=== PATIENT | female | born 1990 | race African-American/Black ===

== ENCOUNTER 2017-01-25 09:49 | Emergency (ER) | payer MEDICAID ==
[2017-01-25 10:00] VITALS: BP 137/69
--- NOTE | 2017-01-25 12:45 | DR.GENAD ---
HPI - PCP Primary Care Physician: DAVIS - HPI Comment HPI Comment: Pt c/o hurting all over for the last 2 days. she reports fever of 101 last night, but denies symptoms and chest pain. Her cough is non productive. She has taken percocet 20mg, oxycontin 60mg proro to arrival today. - Complaint/Symptoms Chief Complaint Doctors Comments: "I am having a sickle cell crisis." Chief Complaint:: PT STATES " I AM HAVING A SICKLE CELL CRISIS I AM HURTING ALL OVER AND VOMITTING ".. Self Treatment fo Chief Complaint: PHENERGAN , ZOFRAN , PERCOCET , OXYCONTIN .. - Nurses notes reviewed Nurses Notes Review: Yes - Source History Provided: Patient - Mode of Arrival Mode of Arrival: Ambulatory - Timing Onset of Chief Complaint: 01/25/17 Came on: Gradually - Duration Duration: Since Onset How lon Duration: Days - Severity Severity: Severe PMH - PMH Past Medical History: Yes Past Medical History: Anemia, Asthma, Hypertension Past Surgical History: Yes Surgical History: , Cholecystectomy - Family History History of Family Medical Conditions: Yes Family Medical History: Heart Failure, Hypertension - Social History Does patient currently use any type of tobacco product: No Have you used tobacco products in the last 12 months: No Type of Tobacco Use: None Does any household member use tobacco: No Do you use any recreational Drugs:: No Lives With: Alone Lives Where: Home - infectious screening In the last 2 months have you had wt loss of >10#?: NO Have you had fever, night sweats or hemotysis?: No Have you traveled outside the country in the last 6 months?: No Isolation: Standard ROS - Review of Systems Constitutional: Chills, Fever, Weakness, Fatigue Eyes: No Symptoms Reported ENTM: No Symptoms Reported Respiratoy: Dry Cough Cardiovascular: No Symptoms Reported Gastrointestinal/Abdominal: No Symptoms Reported Genitourinary: No Symptoms Reported Neurological: No Symptoms Reported Musculoskeletal: Back Pain Integumentary: No Symptoms Reported Hematologic/Lymphatic: No Symptoms Reported Endocrine: No Symptoms Reported Psychiatric: No Symptoms Reported All Other Systems: Reviewed and Negative PE - Vital Signs Vitals: Temperature 98.6 F Pulse Rate 102 Respiratory Rate 18 Blood Pressure 137/69 O2 Sat by Pulse Oximetry 98 - General Limitations: No Limitations General Appearance: Alert, Other (crying) - Head Head Exam: Normal Inspection, Atraumatic - Eyes Eye exam: Normal Appearance, PERRL, EOMI - ENT ENT Exam: Normal Exam, Normal Oropharynx, Mucous Membranes Moist External Ear Exam: Normal External Inspection TM/Canal Exam: Bilateral Normal Nose Exam: Normal Nose Exam Mouth Exam: Normal Inspection Throat Exam: Normal Inspection - Neck Neck Exam: Normal Inspection - Chest Chest Inspection: Normal Inspection - Respiratory Respiratory Exam: Normal Lung Sounds Bilat Respiratory Exam: Bilateral Clear to Auscultation - Cardiovascular Cardiovascular Exam: Regular Rate, Normal Rhythm, Normal Heart Sounds - Abdominal Exam Abdominal Exam: Normal Inspection, Soft - Extremities Extremities Exam: Normal Inspection, Full ROM - Back Back Exam: Normal Inspection - Neurologic Neurological Exam: Alert, Oriented X3, CN II-XII Intact - Psychiatric Psychiatric Exam: Normal Affect, Normal Mood, Agitated - Skin Skin Exam: Warm, Dry, Intact, Normal Color MDM - Differential Diagnosis Differential Diagnosis: sickle cell crisis, drug seeking behavior ROR - Labs Reviewed Result Diagrams: 01/25/17 13:10 01/25/17 13:10 Laboratory: WBC 16.0 X10^3/uL (3.6-10.0) H 01/25/17 13:10 RBC 2.50 X10^6/uL (3.5-5.4) L 01/25/17 13:10 Hgb 7.9 g/dL (12.0-16.0) L 01/25/17 13:10 Hct 24.0 % (36.0-47.0) L 01/25/17 13:10 MCV 96.0 fL (80.0-100.0) 01/25/17 13:10 MCH 31.9 pg (27.0-34.0) 01/25/17 13:10 MCHC 33.2 g/dL (33.0-35.0) 01/25/17 13:10 RDW 20.3 % (11.6-16.5) H 01/25/17 13:10 Plt Count 123 X10^3/uL (150.0-450.0) L 01/25/17 13:10 Plt Count Comment Decreased (ADEQUATE) A 01/25/17 13:10 MPV 9.1 fL (7.4-11.0) 01/25/17 13:10 Neut % 63.9 % (42.0-75.0) 01/25/17 13:10 Lymph % 20.6 % (21.0-51.0) L 01/25/17 13:10 [place] % 11.2 % (0.0-13.0) 01/25/17 13:10 Eos % 3.7 % (0.9-2.9) H 01/25/17 13:10 Baso % 0.6 % (0.2-1.0) 01/25/17 13:10 Neut # 10.3 x10^3/uL (2.2-4.8) H 01/25/17 13:10 Lymph # 3.3 X10^3/uL (1.3-2.9) H 01/25/17 13:10 [place] # 1.8 x10^3/uL (0.3-0.8) H 01/25/17 13:10 Eos # 0.6 x10^3/uL (0.0-0.2) H 01/25/17 13:10 Baso # 0.1 X10^3/uL (0.0-0.1) 01/25/17 13:10 Absolute Nucleated RBC 1.2 /100WBC 01/25/17 13:10 Plt Morphology Comment Normal (NORMAL) 01/25/17 13:10 RBC Morphology Abnormal (NORMAL) A 01/25/17 13:10 Anisocytosis 1+ A 01/25/17 13:10 Sickle Cells Slight A 01/25/17 13:10 Target Cells Slight A 01/25/17 13:10 Absolute Retic 0.1807 10^6/uL 01/25/17 13:10 Percent Retic 7.26 % (0.8-2.2) H 01/25/17 13:10 Sodium 138 mmol/L (136-145) 01/25/17 13:10 Corrected Sodium TNP 01/25/17 13:10 Potassium 4.0 mmol/L (3.5-5.1) 01/25/17 13:10 Chloride 103 mmol/L (98-107) 01/25/17 13:10 Carbon Dioxide 27.1 mmol/L (21-32) 01/25/17 13:10 BUN 7 mg/dL (7-18) 01/25/17 13:10 Creatinine 0.75 mg/dL (0.55-1.02) 01/25/17 13:10 Est GFR (MDRD) Af Amer > 60 (>60) 01/25/17 13:10 Est GFR (MDRD) Non-Af > 60 (>60) 01/25/17 13:10 Glucose 96 mg/dL (65-99) 01/25/17 13:10 Calcium 8.2 mg/dL (8.5-10.1) L 01/25/17 13:10 Corrected Calcium TNP 01/25/17 13:10 Total Bilirubin 1.80 mg/dL (0.2-1.0) H 01/25/17 13:10 AST 68 Units/L (15-37) H 01/25/17 13:10 ALT 79 Units/L (12-78) H 01/25/17 13:10 Alkaline Phosphatase 191 Units/L (46-116) H 01/25/17 13:10 Total Protein 8.4 g/dL (6.4-8.2) H 01/25/17 13:10 Albumin 3.9 g/dL (3.4-5.0) 01/25/17 13:10 Globulin 4.5 g/dL (2.5-4.5) 01/25/17 13:10 Albumin/Globulin Ratio 0.9 Ratio (1.1-2.1) L 01/25/17 13:10 Specimen Type Clean catch urine 01/25/17 14:45 Urine Color Dark yellow (YELLOW) 01/25/17 14:45 Urine Appearance Clear (CLEAR) 01/25/17 14:45 Urine pH 7.0 (5.0 - 8.0) 01/25/17 14:45 Ur Specific [place] 1.010 (1.000-1.030) 01/25/17 14:45 Urine Protein Negative (NEGATIVE) 01/25/17 14:45 Urine Glucose (UA) Negative (NEGATIVE) 01/25/17 14:45 Urine Ketones Negative (NEGATIVE) 01/25/17 14:45 Urine Occult Blood Negative (NEGATIVE) 01/25/17 14:45 Urine Nitrite Negative (NEGATIVE) 01/25/17 14:45 Urine Bilirubin Negative (NEGATIVE) 01/25/17 14:45 Urine Urobilinogen 2+ (NORMAL) 01/25/17 14:45 Ur Leukocyte Esterase Negative (NEGATIVE) 01/25/17 14:45 Urine RBC 0-1 /HPF (NEGATIVE) 01/25/17 14:45 Urine WBC None seen /HPF (NEGATIVE) 01/25/17 14:45 Ur Squamous Epith Cells Moderate /HPF (NEGATIVE) 01/25/17 14:45 Amorphous Sediment Trace /HPF (NEGATIVE) 01/25/17 14:45 Urine Bacteria Trace /HPF (NEGATIVE) 01/25/17 14:45 Ur Culture Indicated? No/not indicated 01/25/17 14:45 - Diagnosis Discharge Problem: Sickle cell anemia with crisis Sickle cell anemia Qualifiers: Sickle-cell associated disorders: with unspecified crisis Qualified Code(s): D57.00 - Hb-SS disease with crisis, unspecified; D57.0 - Hb-SS disease with crisis - Discharge Plan Disposition: 01 HOME, SELF-CARE Condition: Stable - Follow ups/Referrals Follow ups/Referrals: NFD,None [Primary Care Provider] - 3 days - Instructions
[2017-01-25] MEDS ORDERED: PHENERGAN INJ 25 MG IVP ONE (12:56)
[2017-01-25] MEDS ORDERED: PHENERGAN INJ 25 MG ONE (12:56)
[2017-01-25] MEDS ORDERED: DILAUDID INJ IVP ONE ×2 (12:56→15:27)
[2017-01-25] MEDS ORDERED: NS 1000 ML 1,000 ML ONE (12:56)
[2017-01-25] MEDS ORDERED: DILAUDID INJ ONE ×2 (12:56→15:52)
[2017-01-25] MEDS ORDERED: BENADRYL INJ 50 MG VIAL ONE (13:01)
[2017-01-25] MEDS ORDERED: BENADRYL INJ 50 MG VIAL IVP ONE (13:16)
--- NOTE | 2017-01-25 13:44 | RAD ---
HISTORY: Abdominal pain, sickle cell crisis Study: Acute abdominal series Comparison: Chest radiograph April 13, 2016 Findings: There is stable mild enlargement of the cardiac silhouette without evidence of congestive failure. Ri ght-sided port terminates over the cavoatrial junction without pneumothorax. No focal consolidation o r effusion is identified. Moderate stool is present throughout the colon. The bowel gas pattern is otherwise nonobstructive. No convincing pneumatosis or free intraperitoneal air is identified. No pathologic calcifications are s een. There is stable patchy sclerosis of the bilateral humeral heads, suggestive for osteonecrosis without subchondral collapse. There may also be findings of early osteonecrosis of the bilateral femoral hea ds. Endplate changes of sickle cell disease are also noted within the mid and lower thoracic spine. N o acute osseous abnormality is seen. IMPRESSION: 1. No acute cardiopulmonary disease. 2. No acute abdominal abnormality. Reported By:
[2017-01-25] MEDS ORDERED: NS 1000 ML 1,000 ML IV SCH (14:00)
[2017-01-25 14:04] LABS: BASOPHILS # (AUTO) 0.1 X10^3/uL (0.0-0.1); BASOPHILS % (AUTO) 0.6 % (0.2-1.0); EOSINOPHILS # (AUTO) 0.6 x10^3/uL (0.0-0.2); EOSINOPHILS % (AUTO) 3.7 % (0.9-2.9); HEMOGLOBIN 7.9 g/dL (12.0-16.0); LYMPHOCYTES # (AUTO) 3.3 X10^3/uL (1.3-2.9); LYMPHOCYTES % (AUTO) 20.6 % (21.0-51.0); MEAN CORPUSCULAR HEMOGLOBIN 31.9 pg (27.0-34.0); MEAN CORPUSCULAR HGB CONC 33.2 g/dL (33.0-35.0); MEAN PLATELET VOLUME 9.1 fL (7.4-11.0); MONOCYTES # (AUTO) 1.8 x10^3/uL (0.3-0.8); MONOCYTES % (AUTO) 11.2 % (0.0-13.0); NEUTROPHILS # (AUTO) 10.3 x10^3/uL (2.2-4.8); NEUTROPHILS % (AUTO) 63.9 % (42.0-75.0); PLATELET COUNT 123 X10^3/uL (150.0-450.0); RED CELL DISTRIBUTION WIDTH 20.3 % (11.6-16.5)
[2017-01-25 14:10] LABS: PLATELET MORPHOLOGY COMMENT NORMAL (NORMAL); RETICULOCYTE % 7.26 % (0.8-2.2)
[2017-01-25 14:11] LABS: ANISOCYTOSIS 1+; SICKLE CELLS SLIGHT; TARGET CELLS SLIGHT
[2017-01-25 14:16] LABS: ALANINE AMINOTRANSFERASE 79 Units/L (12-78); ALBUMIN 3.9 g/dL (3.4-5.0); ALKALINE PHOSPHATASE 191 Units/L (46-116); ASPARTATE AMINO TRANSFERASE 68 Units/L (15-37); BLOOD UREA NITROGEN 7 mg/dL (7-18); CALCIUM 8.2 mg/dL (8.5-10.1); CARBON DIOXIDE 27.1 mmol/L (21-32); CHLORIDE 103 mmol/L (98-107); CREATININE 0.75 mg/dL (0.55-1.02); GLUCOSE 96 mg/dL (65-99); SODIUM 138 mmol/L (136-145); TOTAL PROTEIN 8.4 g/dL (6.4-8.2); eGFR BLACK RACES > 60 (>60); eGFR NON BLACK RACES > 60 (>60)
[2017-01-25] MEDS ORDERED: NS 1000 ML 300 ML IV ONE (14:27)
[2017-01-25] MEDS ORDERED: ROCEPHIN VIAL 2 GM 2 GM in NS 50 ML IV + SPIKE MINIBAG* 50 ML IV ONE (14:28)
[2017-01-25] MEDS ORDERED: ROCEPHIN 1 GM IV PREMIX * OUT OF STOCK 50 ML IV ONE ×2 (14:55→14:56)
[2017-01-25 14:58] LABS: BILIRUBIN,URINE NEGATIVE (NEGATIVE); BLOOD/HEMOGLOBIN,URINE NEGATIVE (NEGATIVE); GLUCOSE, URINE NEGATIVE (NEGATIVE); KETONES,URINE NEGATIVE (NEGATIVE); LEUKOCYTE ESTERASE ,URINE NEGATIVE (NEGATIVE); NITRITES,URINE NEGATIVE (NEGATIVE); PROTEIN,URINE NEGATIVE (NEGATIVE); UROBILINOGEN,URINE 2+ (NORMAL)
[2017-01-25 15:04] LABS: APPEARANCE,URINE CLEAR (CLEAR); BACTERIA,URINE TRACE /HPF (NEGATIVE); COLOR,URINE DARK YELLOW (YELLOW); RBC,URINE 0-1 /HPF (NEGATIVE); SQUAMOUS EPITHELIAL CELL,UR MODERATE /HPF (NEGATIVE)
[2017-01-25 15:05] LABS: AMORPHOUS SEDIMENT,UR TRACE /HPF (NEGATIVE)
== END 2017-01-25 16:09 | disposition home or self-care (01) ==
LOC: ER 10:00
DX: D57.00 Hb-SS disease with crisis, unspecified (principal)
CPT/HCPCS: 36415; 74022; 80053; 81001; 85025; 85045; 93005; 93010; 96365; 96367; 96374; 96375; 99283; A4222; J0696; J1170; J1200; J2550

== ENCOUNTER 2017-08-10 07:53 | Emergency (ER) | payer MEDICAID ==
[2017-08-10 08:14] VITALS: BMI 23.8
[2017-08-10] MEDS ORDERED: NS 1000 ML 1,000 ML ONE ×2 (08:20→10:05)
[2017-08-10] MEDS ORDERED: NS 1000 ML 1,000 ML IV ONE ×3 (08:32→10:05)
[2017-08-10 08:49] LABS: BASOPHILS # (AUTO) 0.3 X10^3/uL (0.0-0.1); BASOPHILS % (AUTO) 2.7 % (0.2-1.0); EOSINOPHILS # (AUTO) 0.3 x10^3/uL (0.0-0.2); EOSINOPHILS % (AUTO) 2.7 % (0.9-2.9); HEMATOCRIT 24.2 % (36.0-47.0); HEMOGLOBIN 8.3 g/dL (12.0-16.0); LYMPHOCYTES % (AUTO) 52.1 % (21.0-51.0); MEAN CORPUSCULAR HEMOGLOBIN 35.4 pg (27.0-34.0); MEAN CORPUSCULAR HGB CONC 34.4 g/dL (33.0-35.0); MEAN PLATELET VOLUME 9.1 fL (7.4-11.0); MONOCYTES # (AUTO) 0.7 x10^3/uL (0.3-0.8); MONOCYTES % (AUTO) 6.9 % (0.0-13.0); NEUTROPHILS # (AUTO) 3.4 x10^3/uL (2.2-4.8); NEUTROPHILS % (AUTO) 35.6 % (42.0-75.0); PLATELET COUNT 297 X10^3/uL (150.0-450.0); RED BLOOD COUNT 2.35 X10^6/uL (3.5-5.4); RED CELL DISTRIBUTION WIDTH 21.4 % (11.6-16.5); RETICULOCYTE % 9.55 % (0.8-2.2); WHITE BLOOD COUNT 9.5 X10^3/uL (3.6-10.0)
[2017-08-10] MEDS ORDERED: BENADRYL INJ 50 MG VIAL IVP ONE (08:49)
[2017-08-10] MEDS ORDERED: BENADRYL INJ 50 MG VIAL ONE ×2 (08:49→10:05)
[2017-08-10] MEDS ORDERED: DILAUDID INJ IVP ONE ×3 (08:49→10:23)
[2017-08-10] MEDS ORDERED: DILAUDID INJ ONE ×3 (08:50→10:28)
[2017-08-10 08:52] LABS: BLOOD UREA NITROGEN 9 mg/dL (7-18); CALCIUM 7.7 mg/dL (8.5-10.1); CARBON DIOXIDE 25.4 mmol/L (21-32); CHLORIDE 105 mmol/L (98-107); CREATININE 0.79 mg/dL (0.55-1.02); SODIUM 139 mmol/L (136-145); eGFR BLACK RACES > 60 (>60); eGFR NON BLACK RACES > 60 (>60)
--- NOTE | 2017-08-10 09:11 | DR.GENAD ---
HPI - PCP Primary Care Physician: Geovanny - Complaint/Symptoms Chief Complaint Doctors Comments: Patient presents with complaint of sickle cell crisis onset on yesterday has not improved with usual medication of percocet and zofran. She denies fever but admits to abdominal pain and nausea. She takes hydroxyurea and states that the medication has been helping with her crisis. She states that it has been six to seven months since last episode. Chief Complaint:: Patient stated "I started hurting last night. Im in a sickle cell crisis. I am nauseated and I vomitied twice this morning. 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 - Source History Provided: Patient - Mode of Arrival Mode of Arrival: Ambulatory - Timing Onset of Chief Complaint: 08/09/17 - Duration Duration: Hours - Severity Severity: Severe PMH - PMH Past Medical History: Yes Past Medical History: Anemia, Asthma, Hypertension Past Medical History Comment: Sickle Cell Past Surgical History: Yes Surgical History: , Cholecystectomy Past Surgical History Comment: Bilateral Eye surgery - Family History History of Family Medical Conditions: Yes Family Medical History: Heart Failure, Hypertension - Social History Does patient currently use any type of tobacco product: No Have you used tobacco products in the last 12 months: No Type of Tobacco Use: None Does any household member use tobacco: No Do you use any recreational Drugs:: No Lives Where: Home - infectious screening In the last 2 months have you had wt loss of >10#?: NO Have you had fever, night sweats or hemotysis?: No Have you traveled outside the country in the last 6 months?: No Isolation: Standard ROS - Review of Systems Constitutional: negative: Diaphoresis Eyes: No Symptoms Reported ENTM: No Symptoms Reported Respiratoy: Dry Cough Cardiovascular: No Symptoms Reported Gastrointestinal/Abdominal: Abdominal Pain, Nausea. negative: Constipation, Diarrhea Genitourinary: No Symptoms Reported Neurological: No Symptoms Reported Musculoskeletal: No Symptoms Reported Integumentary: No Symptoms Reported Hematologic/Lymphatic: No Symptoms Reported Endocrine: No Symptoms Reported Psychiatric: No Symptoms Reported All Other Systems: Reviewed and Negative PE - Vital Signs Vitals: Temperature 98.7 F Pulse Rate 107 Respiratory Rate 20 Blood Pressure [Left Arm] 131/74 Blood Pressure 118/68 O2 Sat by Pulse Oximetry 96 - General Limitations: No Limitations General Appearance: Alert, In Distress - Head Head Exam: Normal Inspection, Atraumatic - Eyes Eye exam: Normal Appearance, PERRL, EOMI - ENT ENT Exam: Normal Exam External Ear Exam: Normal External Inspection TM/Canal Exam: Bilateral Normal Nose Exam: Normal Nose Exam Mouth Exam: Normal Inspection Throat Exam: Normal Inspection - Neck Neck Exam: Normal Inspection - Chest Chest Inspection: Normal Inspection - Respiratory Respiratory Exam: Normal Lung Sounds Bilat Respiratory Exam: Bilateral Clear to Auscultation - Cardiovascular Cardiovascular Exam: Regular Rate, Normal Rhythm - Abdominal Exam Abdominal Exam: Normal Inspection Abdominal Tenderness: Epigastrium, Mild - Extremities Extremities Exam: Normal Inspection, Full ROM - Back Back Exam: Normal Inspection, Full ROM - Neurologic Neurological Exam: Alert, Oriented X3, CN II-XII Intact - Psychiatric Psychiatric Exam: Anxious - Skin Skin Exam: Warm, Dry, Intact Course - Reevaluation 1st: Improved - Education/Counseling Educated On: Treatment, Diagnosis, Prognosis, Needs for Follow Up ROR - Labs Reviewed Result Diagrams: 08/10/17 08:25 08/10/17 08:25 Laboratory: WBC 9.5 X10^3/uL (3.6-10.0) 08/10/17 08:25 RBC 2.35 X10^6/uL (3.5-5.4) L 08/10/17 08:25 Hgb 8.3 g/dL (12.0-16.0) L 08/10/17 08:25 Hct 24.2 % (36.0-47.0) L 08/10/17 08:25 MCV 103.0 fL (80.0-100.0) H 08/10/17 08:25 MCH 35.4 pg (27.0-34.0) H 08/10/17 08:25 MCHC 34.4 g/dL (33.0-35.0) 08/10/17 08:25 RDW 21.4 % (11.6-16.5) H 08/10/17 08:25 Plt Count 297 X10^3/uL (150.0-450.0) 08/10/17 08:25 Plt Count Comment Adequate (ADEQUATE) 08/10/17 08:25 MPV 9.1 fL (7.4-11.0) 08/10/17 08:25 Neut % 35.6 % (42.0-75.0) L 08/10/17 08:25 Lymph % 52.1 % (21.0-51.0) H 08/10/17 08:25 [place] % 6.9 % (0.0-13.0) 08/10/17 08:25 Eos % 2.7 % (0.9-2.9) 08/10/17 08:25 Baso % 2.7 % (0.2-1.0) H 08/10/17 08:25 Neut # 3.4 x10^3/uL (2.2-4.8) 08/10/17 08:25 Lymph # 5.0 X10^3/uL (1.3-2.9) H 08/10/17 08:25 [place] # 0.7 x10^3/uL (0.3-0.8) 08/10/17 08:25 Eos # 0.3 x10^3/uL (0.0-0.2) H 08/10/17 08:25 Baso # 0.3 X10^3/uL (0.0-0.1) H 08/10/17 08:25 Absolute Nucleated RBC 4.4 /100WBC 08/10/17 08:25 Total Counted 100 08/10/17 08:25 Neutrophils % (Manual) 43 % (39-76) 08/10/17 08:25 Lymphocytes % (Manual) 48 % (13-43) H 08/10/17 08:25 Monocytes % (Manual) 4 % (4-9) 08/10/17 08:25 Eosinophils % (Manual) 3 % (0-6) 08/10/17 08:25 Nucleated RBCs 3 08/10/17 08:25 Plt Morphology Comment Normal (NORMAL) 08/10/17 08:25 RBC Morphology Abnormal (NORMAL) A 08/10/17 08:25 Hypochromasia 1+ A 08/10/17 08:25 Anisocytosis 1+ A 08/10/17 08:25 Absolute Retic 0.2246 10^6/uL 08/10/17 08:25 Percent Retic 9.55 % (0.8-2.2) H 08/10/17 08:25 Sodium 139 mmol/L (136-145) 08/10/17 08:25 Corrected Sodium TNP 08/10/17 08:25 Potassium 4.1 mmol/L (3.5-5.1) 08/10/17 08:25 Chloride 105 mmol/L (98-107) 08/10/17 08:25 Carbon Dioxide 25.4 mmol/L (21-32) 08/10/17 08:25 BUN 9 mg/dL (7-18) 08/10/17 08:25 Creatinine 0.79 mg/dL (0.55-1.02) 08/10/17 08:25 Est GFR (MDRD) Af Amer > 60 (>60) 08/10/17 08:25 Est GFR (MDRD) Non-Af > 60 (>60) 08/10/17 08:25 Glucose 98 mg/dL (65-99) 08/10/17 08:25 Calcium 7.7 mg/dL (8.5-10.1) L 08/10/17 08:25 C-Reactive Protein 6.50 mg/L (0-3.0) H 08/10/17 08:25 - XRAY XRAY Interpreted by: Radiologist (Chest: No acute abnormality.) - Diagnosis Discharge Problem: Sickle cell anemia with crisis - Discharge Plan Condition: Stable - Follow ups/Referrals Follow ups/Referrals: FRED MARTINEZ [Primary Care Provider] - 3 days - Instructions
--- NOTE | 2017-08-10 09:12 | RAD ---
Examination: Portable AP chest History: Sickle cell crisis Comparison 04/13/2016 Findings: Continued normal heart size with no acute pulmonary or pleural lesion identified. There are sclerotic densities in the left humeral head consistent with sickle cell disease. A right subclavian injection port terminates near the cavoatrial junction. Impression: No acute chest findings. Reported By:
[2017-08-10] MEDS ORDERED: COMPAZINE INJ IVP ONE (09:18)
[2017-08-10] MEDS ORDERED: COMPAZINE INJ ONE (09:21)
[2017-08-10 09:38] LABS: PLATELET MORPHOLOGY COMMENT NORMAL (NORMAL)
[2017-08-10 09:39] LABS: ANISOCYTOSIS 1+; HYPOCHROMASIA 1+
[2017-08-10] MEDS ORDERED: BENADRYL INJ 50 MG VIAL IVP STA (10:03)
[2017-08-10 10:12] VITALS: BP 131/74
== END 2017-08-10 10:58 | disposition home or self-care (01) ==
LOC: ER 08:02
DX: D57.00 Hb-SS disease with crisis, unspecified (principal)
CPT/HCPCS: 36415; 71045; 80048; 85025; 85045; 86140; 96365; 96367; 96374; 96375; 99283; 99284; J0780; J1170; J1200